=== PATIENT | female | born 1940 | race Caucasian/White ===

== ENCOUNTER 2025-10-12 23:03 | Inpatient (IN) ==
[2025-10-12] MEDS ORDERED: ONDANSETRON 4 MG/2 ML VIAL IV PRN (23:14)
[2025-10-12 23:37] LABS: Basophils # (Auto) 0.02 K/mcL (0.00-0.30); Basophils % (Auto) 0.1 % (0.0-2.0); Eosinophils # (Auto) 0.01 K/mcL (0.00-0.70); Eosinophils % (Auto) 0.1 % (0.0-7.0); Hematocrit 37.2 % (34.1-44.9); Hemoglobin 12.5 g/dL (11.2-15.7); Lymphocytes # (Auto) 0.85 K/mcL (1.50-4.80); Lymphocytes % (Auto) 5.1 % (15.5-49.0); Mean Corpuscular HGB Conc 33.6 g/dL (31.0-36.0); Monocytes # (Auto) 1.26 K/mcL (0.10-0.90); Monocytes % (Auto) 7.6 % (1.0-12.0); Neutrophils % (Auto) 86.8 % (38.0-78.0); Platelet Count 264 K/mcL (140-440); RBC 3.97 M/mcL (3.59-5.38); WBC 16.6 K/mcL (4.5-11.0)
[2025-10-12 23:56] LABS: ALT/SGPT 22 U/L (<40); AST/SGOT 26 U/L (<32); Albumin 3.7 gm/dL (3.2-5.2); Albumin/Globulin Ratio 1.8 (1.0-2.3); Alkaline Phosphatase 50 U/L (39-117); Anion Gap 9.0 (8.0-16.0); Bilirubin,Direct 0.2 mg/dL (<0.3); Bilirubin,Total 0.5 mg/dL (0.1-1.0); Blood Urea Nitrogen 18 mg/dL (8-23); Calcium 8.2 mg/dL (8.6-10.4); Carbon Dioxide 30 mmol/L (22-30); Chloride 97 mmol/L (96-108); Globulin 2.1 gm/dL (2.2-3.7); Glucose 147 mg/dL (70-105); Phosphorous 4.2 mg/dL (2.5-4.5); Potassium 3.8 mmol/L (3.3-5.1); Sodium 136 mmol/L (133-145); Triglycerides 58 mg/dL (<150); Uric Acid 3.0 mg/dL (2.5-8.0)
[2025-10-13] MEDS: fentaNYL 100 MCG/2 ML VIAL IV PRN (01:37)
[2025-10-13] MEDS ORDERED: NALOXONE HCL 0.4 MG/ML VIAL IV PRN ×2 (02:36→08:52)
[2025-10-13] MEDS: ACETAMINOPHEN 1,000 MG/100 ML BAG IV ONE ×2 (03:24→09:25)
[2025-10-13] MEDS: LACTATED RINGERS 1,000 ML IV SCH (03:24)
[2025-10-13 03:34] LABS: Bilirubin,Urine NEGATIVE (Negative); Color,Urine LT. YELLOW; Glucose,Urine (UA) NEGATIVE (Negative); Ketones,Urine TRACE mg/dL (Negative); Leukocyte Esterase,Urine NEGATIVE /uL (Negative); PH,Urine 7.5 (5.0-9.0); Protein,Urine NEGATIVE (Negative); Specific Gravity,Urine 1.010 (1.000-1.035); Urobilinogen,Urine 0.2 mg/dL
[2025-10-13 07:52] LABS: ALT/SGPT 21 U/L (<40); AST/SGOT 25 U/L (<32); Albumin 3.5 gm/dL (3.2-5.2); Albumin/Globulin Ratio 1.8 (1.0-2.3); Alkaline Phosphatase 48 U/L (39-117); Anion Gap 6.0 (8.0-16.0); Bilirubin,Direct 0.3 mg/dL (<0.3); Bilirubin,Total 0.6 mg/dL (0.1-1.0); Blood Urea Nitrogen 18 mg/dL (8-23); Calcium 8.1 mg/dL (8.6-10.4); Carbon Dioxide 31 mmol/L (22-30); Chloride 99 mmol/L (96-108); Globulin 2.0 gm/dL (2.2-3.7); Glucose 128 mg/dL (70-105); Phosphorous 4.1 mg/dL (2.5-4.5); Potassium 4.5 mmol/L (3.3-5.1); Sodium 136 mmol/L (133-145); Triglycerides 73 mg/dL (<150); Uric Acid 3.4 mg/dL (2.5-8.0)
[2025-10-13] MEDS ORDERED: PROPOFOL 200 MG/20 ML VIAL IV ONE (07:52)
[2025-10-13] MEDS ORDERED: LIDOCAINE 2% PF 5 ML VIAL ONE (07:52)
[2025-10-13] MEDS ORDERED: DEXAMETHASONE 10 MG/ML VIAL ONE (07:52)
[2025-10-13] MEDS ORDERED: ONDANSETRON 4 MG/2 ML VIAL ONE (07:52)
[2025-10-13] MEDS ORDERED: TRANEXAMIC ACID 1,000 MG/10 ML VIAL ONE (07:53)
[2025-10-13 07:56] LABS: Basophils # (Auto) 0.03 K/mcL (0.00-0.30); Basophils % (Auto) 0.3 % (0.0-2.0); Eosinophils # (Auto) 0.02 K/mcL (0.00-0.70); Eosinophils % (Auto) 0.2 % (0.0-7.0); Hematocrit 37.3 % (34.1-44.9); Hemoglobin 12.3 g/dL (11.2-15.7); Lymphocytes # (Auto) 1.35 K/mcL (1.50-4.80); Lymphocytes % (Auto) 13.0 % (15.5-49.0); Mean Corpuscular HGB Conc 33.0 g/dL (31.0-36.0); Monocytes # (Auto) 1.03 K/mcL (0.10-0.90); Monocytes % (Auto) 9.9 % (1.0-12.0); Neutrophils % (Auto) 76.4 % (38.0-78.0); Platelet Count 229 K/mcL (140-440); RBC 3.92 M/mcL (3.59-5.38); WBC 10.4 K/mcL (4.5-11.0)
[2025-10-13] MEDS: ceFAZolin 2 GM in DEXTROSE 5% IN WATER 50 ML IV SCH ×2 (08:09→20:47)
[2025-10-13] MEDS ORDERED: ePHEDrine 50 MG/5 ML SYRINGE (ANEST) IV ONE (08:23)
[2025-10-13] MEDS ORDERED: PHENYLephrine 1 MG/10 ML SYRINGE (ANEST) ONE (08:25)
[2025-10-13] MEDS ORDERED: IPRATROPIUM/ALBUTEROL 3 ML AMPUL.NEB NEB PRN (08:52)
[2025-10-13] MEDS ORDERED: MEPERIDINE 25 MG/ML VIAL IV PRN (08:52)
[2025-10-13] MEDS ORDERED: fentaNYL 100 MCG/2 ML VIAL IV PRN (08:52)
[2025-10-13] MEDS ORDERED: diphenhydrAMINE 50 MG/ML VIAL IV PRN (08:52)
[2025-10-13] MEDS ORDERED: ONDANSETRON 4 MG/2 ML VIAL IV PRN (08:52)
[2025-10-13] MEDS ORDERED: BENZOCAINE/MENTHOL 1 LOZENGE PO PRN (09:29)
[2025-10-13] MEDS ORDERED: FLEETS ADULT 1 DOSE ENEMA PR PRN (09:29)
[2025-10-13] MEDS: METHOCARBAMOL 1,000 MG/10 ML VIAL IV PRN (09:32)
[2025-10-13] MEDS ORDERED: DOCUSATE SODIUM 10 MG/ML ML PO PRN (09:38)
[2025-10-13] MEDS: TRANEXAMIC ACID 1,000 MG/10 ML VIAL IV SCH (09:51)
[2025-10-13] MEDS: 0.9 % SODIUM CHLORIDE 10 ML SYRINGE IV SCH (14:17)
[2025-10-13] MEDS: ACETAMINOPHEN 500 MG TABLET PO SCH (17:56)
[2025-10-13] MEDS: ONDANSETRON 4 MG/2 ML VIAL IV PRN (20:48)
[2025-10-13] MEDS ORDERED: SENNOSIDES 1 TABLET PO SCH (21:00)
[2025-10-13] MEDS: METHOCARBAMOL 500 MG TABLET PO PRN (22:13)
[2025-10-13] MEDS: VITAMIN D3 25 MCG TABLET PO SCH (22:13)
[2025-10-13] MEDS: SENNOSIDES 1 TABLET PO SCH (22:13)
[2025-10-13] MEDS: CYANOCOBALAMIN (VITAMIN B-12) 500 MCG TABLET PO SCH (22:13)
[2025-10-14 07:00] LABS: Basophils # (Auto) 0.01 K/mcL (0.00-0.30); Basophils % (Auto) 0.1 % (0.0-2.0); Eosinophils # (Auto) 0.01 K/mcL (0.00-0.70); Eosinophils % (Auto) 0.1 % (0.0-7.0); Hematocrit 32.9 % (34.1-44.9); Hemoglobin 11.1 g/dL (11.2-15.7); Lymphocytes # (Auto) 1.01 K/mcL (1.50-4.80); Lymphocytes % (Auto) 7.2 % (15.5-49.0); Mean Corpuscular HGB Conc 33.7 g/dL (31.0-36.0); Monocytes # (Auto) 1.09 K/mcL (0.10-0.90); Monocytes % (Auto) 7.8 % (1.0-12.0); Neutrophils % (Auto) 84.6 % (38.0-78.0); Platelet Count 220 K/mcL (140-440); RBC 3.47 M/mcL (3.59-5.38); WBC 14.0 K/mcL (4.5-11.0)
[2025-10-14 07:05] LABS: ALT/SGPT 17 U/L (<40); AST/SGOT 23 U/L (<32); Albumin 3.3 gm/dL (3.2-5.2); Albumin/Globulin Ratio 1.7 (1.0-2.3); Alkaline Phosphatase 42 U/L (39-117); Anion Gap 8.0 (8.0-16.0); Bilirubin,Direct 0.2 mg/dL (<0.3); Bilirubin,Total 0.4 mg/dL (0.1-1.0); Blood Urea Nitrogen 11 mg/dL (8-23); Calcium 8.2 mg/dL (8.6-10.4); Carbon Dioxide 28 mmol/L (22-30); Chloride 96 mmol/L (96-108); Globulin 2.0 gm/dL (2.2-3.7); Glucose 132 mg/dL (70-105); Phosphorous 3.0 mg/dL (2.5-4.5); Potassium 4.6 mmol/L (3.3-5.1); Sodium 132 mmol/L (133-145); Triglycerides 81 mg/dL (<150); Uric Acid 2.7 mg/dL (2.5-8.0)
[2025-10-14] MEDS: ENOXAPARIN 40 MG/0.4 ML SYRINGE SQ SCH (08:12)
[2025-10-14] MEDS: OMEPRAZOLE 20 MG CAPSULE PO SCH (08:13)
[2025-10-14] MEDS: LEVOTHYROXINE 75 MCG TABLET PO SCH (08:13)
[2025-10-14] MEDS: LOSARTAN 50 MG TABLET PO SCH (08:13)
[2025-10-14] MEDS: POLYETHYLENE GLYCOL 3350 17 GM PACKET PO PRN (08:14)
[2025-10-14] MEDS: DILTIAZEM 240 MG CAP.XL.24H PO SCH (20:13)
[2025-10-15 06:15] LABS: Basophils # (Auto) 0.02 K/mcL (0.00-0.30); Basophils % (Auto) 0.2 % (0.0-2.0); Eosinophils # (Auto) 0.13 K/mcL (0.00-0.70); Eosinophils % (Auto) 1.3 % (0.0-7.0); Hematocrit 32.2 % (34.1-44.9); Hemoglobin 10.5 g/dL (11.2-15.7); Lymphocytes # (Auto) 1.31 K/mcL (1.50-4.80); Lymphocytes % (Auto) 13.3 % (15.5-49.0); Mean Corpuscular HGB Conc 32.6 g/dL (31.0-36.0); Monocytes # (Auto) 0.93 K/mcL (0.10-0.90); Monocytes % (Auto) 9.5 % (1.0-12.0); Neutrophils % (Auto) 75.6 % (38.0-78.0); Platelet Count 195 K/mcL (140-440); RBC 3.34 M/mcL (3.59-5.38); WBC 9.8 K/mcL (4.5-11.0)
[2025-10-15 06:42] LABS: ALT/SGPT 12 U/L (<40); AST/SGOT 21 U/L (<32); Albumin 3.1 gm/dL (3.2-5.2); Albumin/Globulin Ratio 1.6 (1.0-2.3); Alkaline Phosphatase 40 U/L (39-117); Anion Gap 6.0 (8.0-16.0); Bilirubin,Direct 0.2 mg/dL (<0.3); Bilirubin,Total 0.4 mg/dL (0.1-1.0); Blood Urea Nitrogen 11 mg/dL (8-23); Calcium 8.1 mg/dL (8.6-10.4); Carbon Dioxide 30 mmol/L (22-30); Chloride 98 mmol/L (96-108); Globulin 1.9 gm/dL (2.2-3.7); Glucose 95 mg/dL (70-105); Phosphorous 2.8 mg/dL (2.5-4.5); Potassium 4.4 mmol/L (3.3-5.1); Sodium 134 mmol/L (133-145); Triglycerides 89 mg/dL (<150); Uric Acid 2.2 mg/dL (2.5-8.0)
[2025-10-15] MEDS ORDERED: ACETAMINOPHEN 500 MG TABLET PO PRN (13:11)
[2025-10-15] MEDS: ACETAMINOPHEN 500 MG TABLET PO PRN (22:00)
[2025-10-16 07:08] LABS: Hematocrit 34.5 % (34.1-44.9); Hemoglobin 11.3 g/dL (11.2-15.7)
[2025-10-16] MEDS ORDERED: ENALAPRILAT 1.25 MG/ML VIAL IV PRN (11:17)
[2025-10-16] MEDS: 0.9 % SODIUM CHLORIDE 500 ML IV ONE (11:52)
[2025-10-16] MEDS: METOCLOPRAMIDE 10 MG/2 ML VIAL IV PRN (11:52)
[2025-10-16 12:14] LABS: Thyroid Stimulating Hormone 1.27 uIU/mL (0.27-5.01)
[2025-10-16] MEDS: 0.9 % SODIUM CHLORIDE 1,000 ML IV SCH (15:53)
[2025-10-16] MEDS: METOCLOPRAMIDE 10 MG TABLET PO SCH (17:04)
[2025-10-17] MEDS: hydrALAZINE 20 MG/ML VIAL IV PRN (01:01)
[2025-10-17 11:35] VITALS: TEMP 97.9; O2SAT 96
== END 2025-10-17 13:01 | DRG 481 ==
LOC: ED 23:03 → MEDSUR 10-13 03:15
PROVIDERS: ADMIT Student in an Organized Health Care Education/Training Program; ATTEND Internal Medicine